=== PATIENT | female | born 1940 | race Caucasian/White ===

== ENCOUNTER 2018-08-20 15:10 | Inpatient (IN) | payer MEDICARE, OTHER ==
[~2018-08-20] VITALS: Ht 152.4 cm; Wt 48.1 kg
[2018-08-20 15:18] VITALS: BP 144/76
[2018-08-20] MEDS ORDERED: FOLIC ACID1 MG PO (15:23)
[2018-08-20] MEDS ORDERED: AZULFIDINE500 MG PO (15:23)
[2018-08-20] MEDS ORDERED: I-CAPS AREDS S1 EACH PO (15:24)
[2018-08-20] MEDS ORDERED: TYLENOL EXTRA500 MG PO (15:24)
[2018-08-20] MEDS ORDERED: PEPCID AC20 MG PO (15:24)
[2018-08-20] MEDS ORDERED: VITAMIN D1000 UNI1 PO (15:25)
[2018-08-20 15:48] LABS: HEMATOCRIT 39.8 % (37.0-47.0); HEMOGLOBIN 12.8 gm/dL (12.0-15.0); MCH 30.8 pg (26.0-34.0); MCHC 32.2 g/dL (28.0-37.0); MCV 95.4 fL (80.0-100.0); MPV 7.8 fl. (7.2-11.1); NUCLEATED RBCS 0 /100WBC; PLATELET COUNT* 455 thou/uL (150-400); RBC 4.17 mil/uL (4.20-5.00); RDW-CV 14.8 % (10.5-14.5); WBC 18.9 thou/uL (4.0-11.0)
[2018-08-20 15:59] LABS: APTT 29.6 Seconds (25.0-31.3); INR 1.1; PROTIME 11.3 Seconds (9.20-11.50)
[2018-08-20 16:05] LABS: ALBUMIN 3.7 g/dL (3.4-5.0); ALKALINE PHOSPHATASE 132 U/L (46-116); ANION GAP 12 mmol/L (7-16); BUN 14 mg/dL (7-18); CALCIUM 9.9 mg/dL (8.5-10.1); CHLORIDE 99 mmol/L (98-107); CO2 27 mmol/L (21-32); CREATININE 0.7 mg/dL (0.6-1.3); GLUCOSE 123 mg/dL (70-99); POTASSIUM 3.5 mmol/L (3.5-5.1); SGOT 17 U/L (15-37); SGPT 15 U/L (30-65); SODIUM 138 mmol/L (136-145); TOTAL BILIRUBIN 0.7 mg/dL (<0.1-1.0); TROPONIN-I LEVEL <0.06 ng/mL (<0.06)
[2018-08-20 16:10] LABS: ABSOLUTE LYMPHOCYTES 0.8 thou/uL (0.8-5.3); ABSOLUTE MONOCYTES 0.8 thou/uL (0.0-1.2); ABSOLUTE NEUTROPHILS 17.4 thou/uL (1.6-8.1)
[2018-08-20 16:11] LABS: ANISOCYTOSIS Occasional; PLATELET ESTIMATE ADEQUATE
[2018-08-20 16:12] LABS: LARGE PLATELETS OCCASIONAL
--- NOTE | 2018-08-20 16:14 | NUR ---
PT'S SISTER, DHIRAJ, WAS CONTACTED AT [phone], PER PATIENT REQUEST, TO INFORM OF THE PATIENT'S PLAN OF CARE. DHIRAJ WAS TOLD THAT THE PATIENT WILL BE ADMITTED TO HOSPITAL, LABS AND X-RAY ARE STILL PENDING. PT GIVES HER PERMISSION FOR DHIRAJ TO HAVE ANY INFORMATION REQUESTED IF SHE CALLS TO REQUEST PATIENT INFORMATION. DHIRAJ STATES THAT SHE WILL TRY TO COME UP TO HOSPITAL TO VISIT THE PATIENT.
[2018-08-20 16:41] VITALS: BP 148/73
--- NOTE | 2018-08-20 16:41 | NUR ---
THIS NURSE GAVE REPORT TO OLIMPIA GARCIA WHO IS TO ASSUME PT CARE INPATIENT.
[2018-08-20 18:42] VITALS: BP 142/67
--- NOTE | 2018-08-20 18:44 | NUR ---
PT ADMITTED ON TELE FLOOR. REPORT RECEIVED FROM ER NURSE. PT VSS. 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 ON 2 L NC AND SATURATION IS 93%. IV ABX STARTED THEN IV NS WO INFUSED ORDERED. PT REQUESTED THAT SHE GETS HER SULFA DRUG. THIS DRUG IS NOT AVAILABLE IN [place] YET. BUT PT RECEIVED HYDROCODONE FOR PAIN IN BACK. PAIN LEVEL IS A 7. PT ATE DINER. HAS GOOD APPETITE. ADMISSION ASSESSEMENT AND HX PERFORMED AT BEDSIDE. SKIN IS INTACT. PT HAS LOOSE COUGH WITH SMALL AMOUNT OF SPUTUM CLEAR IN COLOR. MADE C OMFROTABLE, CALL LIGHT AT REACH. WILL CONTINUE TO MONITOR
[2018-08-20 20:24] VITALS: BP 137/73
[2018-08-21] VITALS: BP 120/61
[2018-08-21 04:00] VITALS: BP 140/74
[2018-08-21 05:09] LABS: ABSOLUTE BASOPHILS 0.1 thou/uL (0.0-0.2); ABSOLUTE LYMPHOCYTES 1.2 thou/uL (0.8-5.3); ABSOLUTE MONOCYTES 1.6 thou/uL (0.0-1.2); ABSOLUTE NEUTROPHILS 12.7 thou/uL (1.6-8.1); BASOPHILS 0.4 %; HEMATOCRIT 33.1 % (37.0-47.0); LYMPHOCYTES 7.6 %; MCHC 32.4 g/dL (28.0-37.0); MCV 95.6 fL (80.0-100.0); MONOCYTES 10.2 %; MPV 7.9 fl. (7.2-11.1); NUCLEATED RBCS 0 /100WBC; POLYS 81.8 %; RBC 3.46 mil/uL (4.20-5.00); RDW-CV 14.9 % (10.5-14.5); WBC 15.5 thou/uL (4.0-11.0)
[2018-08-21 05:19] LABS: HEMOGLOBIN 10.7 gm/dL (12.0-15.0); PLATELET COUNT* 372 thou/uL (150-400)
[2018-08-21 05:24] LABS: CALCIUM 8.4 mg/dL (8.5-10.1); CREATININE 0.6 mg/dL (0.6-1.3); MAGNESIUM 1.6 mg/dL (1.8-2.4); POTASSIUM 3.6 mmol/L (3.5-5.1)
[2018-08-21 08:00] VITALS: BP 147/90
--- NOTE | 2018-08-21 08:18 | NUR ---
PT IS ABLE TO COMMUNICATE HER NEEDS TO STAFF EFFECTIVELY. CURRENT PAIN MEDICATION REGIMEN HAS BEEN ADEQUATE FOR CONTROLLING HER PAIN UP TO THIS TIME. PT RECEIVING LOVENOX, BUT HAS REFUSED SCDs.
--- NOTE | 2018-08-21 10:37 | EKG ---
[place] [address] ELECTROCARDIOGRAM REPORT Name: LIONEL WALTERS Room: [address] ADM IN .R.#: [id number] Admission: 08/20/18 Attend Phys: Magy Wallace MD Discharge: Date of : 40 Report #: [id number] THIS REPORT FOR: //name// [facility] ED Test Date: 2018-08-20 Test Time: 15:25:20 Pat Name: LIONEL WALTERS Department: Room: [facility] Gender: F Perfume Compounder: XOCHILT Payton : 1940 Requested By: Luis Marsh Order Number: [id number] MD: Loyd Collins Measurements Intervals [place] Rate: 115 P: 53 ID: [id number] QRS: -78 QRSD: 75 T: 23 QT: 319 QTc: 442 Interpretive Statements Sinus tachycardia Probable left atrial enlargement Abnormal R-wave progression, late transition Inferior infarct, old No previous ECG available for comparison Electronically Signed On 08-21-2018 10:37:41 CDT by Loyd Collins [email or web address] <ELECTRONICALLY SIGNED> By: Loyd Collins MD, [facility] 08/21/18 1037 1525 1525 Loyd Collins MD, [facility] /EPI
[2018-08-21 11:25] VITALS: BP 111/58
[2018-08-21 13:38] LABS: URINE BILIRUBIN NEGATIVE (Negative); URINE BLOOD NEGATIVE (Negative); URINE CLARITY CLEAR; URINE COLOR YELLOW; URINE GLUCOSE-RANDOM NEGATIVE (Negative); URINE KETONES TRACE (Negative); URINE LEUKOCYTES-REFLEX NEGATIVE (Negative); URINE NITRITE-REFLEX NEGATIVE (Negative); URINE PROTEIN NEGATIVE (Negative); URINE SPECIFIC GRAVITY 1.025 (1.005-1.030); URINE UROBILINOGEN 0.2 E.U./dl (0.2-1.0)
--- NOTE | 2018-08-21 15:24 | NUR ---
Pt is A&O. Resides at home with her sister, TRINO and niece. Active and independent. No DME, no home o2. Hx of HH, does not recall the name of the agency. No hx of SNF. [place] No needs anticipated.
[2018-08-21 15:54] VITALS: BP 115/62
--- NOTE | 2018-08-21 17:03 | NUR ---
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 PAIN LEVEL 8 IN BACK WHEN COUGHING TYLENOL AND HYDROCODONE GIVEN. PT/OT WORKS WITH PT. ON 2 L NC. MAGNESIUM REPLACED. NS HAS BEEN DC'D. SKIN IS INTACT. URINE SPECIMEN SENT TO LAB. IV ABX GIVEN ORDERED. WILL CONTINUE TO MONITOR PT.
[2018-08-21 20:00] VITALS: BP 147/66
[2018-08-22] VITALS (7 sets, daily range): BP systolic 117–139; BP diastolic 53–70
--- NOTE | 2018-08-22 04:38 | NUR ---
ASSUMED CARE OF PT AFTER REPORT AT 1930. PT A&OX4. VSS. PHYSICAL ASSESSMENT COMPLETED AND CHARTED. PT ON O2 AT 2L NC WITH 93% O2 SAT. PT TRACING SR/ PAC ON TELE. PT UPSTANDBY TO RESTROOM. PT RESTED WELL ON BED. CALL LIGHT WITHIN REACH.
[2018-08-22 04:47] LABS: ABSOLUTE BASOPHILS 0.1 thou/uL (0.0-0.2); ABSOLUTE EOSINOPHILS 0.2 thou/uL (0.0-0.7); ABSOLUTE LYMPHOCYTES 1.1 thou/uL (0.8-5.3); ABSOLUTE MONOCYTES 1.5 thou/uL (0.0-1.2); ABSOLUTE NEUTROPHILS 9.5 thou/uL (1.6-8.1); BASOPHILS 0.9 %; EOSINOPHILS 1.3 %; HEMATOCRIT 32.7 % (37.0-47.0); HEMOGLOBIN 10.8 gm/dL (12.0-15.0); LYMPHOCYTES 8.6 %; MCH 31.5 pg (26.0-34.0); MCHC 33.1 g/dL (28.0-37.0); MCV 95.4 fL (80.0-100.0); MPV 7.8 fl. (7.2-11.1); NUCLEATED RBCS 0 /100WBC; PLATELET COUNT* 385 thou/uL (150-400); POLYS 77.2 %; RBC 3.43 mil/uL (4.20-5.00); RDW-CV 14.9 % (10.5-14.5); WBC 12.4 thou/uL (4.0-11.0)
[2018-08-22 05:02] LABS: CALCIUM 8.4 mg/dL (8.5-10.1); CREATININE 0.6 mg/dL (0.6-1.3); POTASSIUM 3.2 mmol/L (3.5-5.1)
--- NOTE | 2018-08-22 17:33 | NUR ---
PATIENT RESTING IN BED. PATIENT IS UP STANDBY ASSIST IN ROOM AND WALKED IN HALLS X 1. PATIENT HAS OXYGEN ON AT 2L/NC. DENIES ANY TROUBLE BREATHING. PATIENT DOES HAVE A PRODUCTIVE COUGH, SPUTUM SAMPLE SENT TO LAB. PATIENT HAS GOOD APPETITE. PATIENT DENIES ANY NEEDS AT THIS TIME. CALL LIGHT WITHIN REACH. WILL CONTINUE TO MONITOR.
[2018-08-23 03:54] VITALS: BP 132/67
--- NOTE | 2018-08-23 05:55 | NUR ---
ASSUMED CARE OF PT AFTER REPORT AT 1930. PT A&OX4. VSS. PHYSICAL ASSESSMENT COMPLETED AND CHARTED. PT ON O2 AT 2L WITH 92% O2 SAT. PT ON MEDSURG STATUS. PT UPSTANDBY TO RESTROOM. PT COMPLAINED OF BACK PAIN- PAIN MEDS GIVEN PER JUL. PT RESTED WELL ON BED. CALL LIGHT WITHIN REACH.
[2018-08-23 08:05] VITALS: BP 144/72
[2018-08-23 09:57] VITALS: BP 144/72
[2018-08-23 11:44] VITALS: BP 144/72
[2018-08-23] MEDS ORDERED: CEFDINIR300 MG PO (11:44)
[2018-08-23 12:35] VITALS: BP 144/72
--- NOTE | 2018-08-23 12:37 | NUR ---
ASSESSMENT COMPLETE. PT DENIES PAIN AND N/V THIS AM. VSS. PT DC HOME. PT GIVEN PERSCRIPTION AND DISCHARGE INSTRUCTIONS. VERBALIZES UNDERSTADNING AND HAS NO CONCERNS. SEE ASSESSMENT AND VITALS FOR OTHER DETAILS.
== END 2018-08-23 12:20 | disposition home or self-care (01) | DRG 871 ==
LOC: M.ERS 15:10 → M.2W 16:15 → M.TBA-ER 16:15 → M.2W 16:55 → M.3W 08-23 07:57
PROVIDERS: Nurse Practitioner Family; ADMIT Family Medicine
DX: A41.9 Sepsis, unspecified organism (principal); J96.01 Acute respiratory failure with hypoxia; J15.9 Unspecified bacterial pneumonia; E83.42 Hypomagnesemia; E86.0 Dehydration; R65.20 Severe sepsis without septic shock; Z88.5 Allergy status to narcotic agent; Z79.899 Other long term (current) drug therapy